=== PATIENT | male | born 1965 | race Caucasian/White ===

== ENCOUNTER 2025-06-30 16:17 | Emergency (ER) | payer SELFPAY ==
[2025-06-30] MEDS ORDERED: Cephalexin 500 MG CAP ONE (17:02)
== END 2025-06-30 17:09 | disposition home or self-care (01) ==
LOC: NAV ERS 16:17
DX: L03.114 Cellulitis of left upper limb (principal); I10 Essential (primary) hypertension; Z79.899 Other long term (current) drug therapy
CPT/HCPCS: 99283